=== PATIENT | male | born 1955 | race Caucasian/White ===

== ENCOUNTER → 2016-04-06 | Outpatient (CLI) | payer BC ==
--- NOTE | 2016-04-07 08:05 | XR ---
EXAMINATION TYPE: XR ribs RT w pa chest xray DATE OF EXAM: 04/06/2016 8:51 AM CLINICAL HISTORY: Mid right-sided rib pain for one week. History of positive PPD test and tobacco use . TECHNIQUE: Single frontal view of the chest is obtained. A frontal lobe likely images of the right-si ded ribs are acquired. COMPARISON: None FINDINGS: There is patchy left basilar linear atelectasis. There is 5 mm calcified nodule right lowe r lung suggesting old granulomatous disease. The right lung is clear. No pleural effusion or pneumot horax is seen bilaterally. The cardiac silhouette size is within normal limits with atherosclerotic t horacic aorta. The osseous structures are intact. Dedicated images of the right-sided ribs show minimally displaced acute fracture right posterior late ral eighth ribs. I do suspect adjacent acute nondisplaced right shoulder of right posterior lateral s eventh rib. Overlying soft tissue is unremarkable. IMPRESSION: 1. Patchy left basilar atelectasis. 2. Acute minimally displaced fracture right posterior lateral eighth rib with adjacent acute nondispl aced fracture right posterior lateral seventh rib are felt present. Clinical correlation for recent t rauma advised.
== END | disposition home or self-care (01) ==
LOC: RADXRYALE 08:35
PROVIDERS: ATTEND Physician Assistant Medical
DX: J98.11 Atelectasis (principal); S22.41XA Multiple fractures of ribs, right side, initial encounter for closed fracture; X58.XXXA Exposure to other specified factors, initial encounter

== ENCOUNTER → 2017-04-28 | Outpatient (CLI) | payer BC ==
--- NOTE | 2017-04-29 08:34 | US ---
EXAMINATION TYPE: US thyroid st tissue head/neck DATE OF EXAM: 04/28/2017 COMPARISON: NONE CLINICAL HISTORY: I881 Chronic lympadenitis. Palpable right lateral anterior neck x few months. Bruna ent states having a cold x 3 weeks ago. Area of palpable lump scanned. Oval vascular hypoechoic lesion seen = 2.4 x 2.1 x 1.2 cm. Contralat eral image taken. IMPRESSION: 1. Abnormal hypoechoic mass at the level of the palpable abnormality. This could be a lymph node. Add itional workup with contrast CT neck is recommended.
== END | disposition home or self-care (01) ==
LOC: RADUSWWP 15:27
PROVIDERS: ATTEND Family Medicine
DX: R22.1 Localized swelling, mass and lump, neck (principal)
CPT/HCPCS: 76536

== ENCOUNTER → 2017-05-12 | Outpatient (CLI) | payer BC | END | disposition home or self-care (01) | LOC: RADCTMAIN 09:29 | PROVIDERS: ATTEND Physician Assistant Medical | DX: Z53.9 Procedure and treatment not carried out, unspecified reason (principal) ==

== ENCOUNTER → 2017-05-16 | Outpatient (CLI) | payer BC ==
--- NOTE | 2017-05-16 12:32 | CT ---
EXAMINATION TYPE: CT soft tissue neck w con DATE OF EXAM: 05/16/2017 HISTORY: Rt neck mass and swelling for 3 months. COMPARISON: Neck ultrasound April 28, 2017 CT DLP: 758 mGycm. Automated Exposure Control for Dose Reduction was Utilized. TECHNIQUE: CT scan of the neck is performed with IV Contrast, patient injected with 100 mL of Omnipa que 300, axial images are obtained, coronal and sagittal reformatted images are reviewed. FINDINGS: Airway: At level of palpable abnormality with metallic BB marker on axial image 36 right submandibula r level there is heterogeneous solid mass anterior to SCM muscle measuring 2.0 x 1.4 cm axial image 3 4 believed to correspond to ultrasound abnormality suspected abnormal lymph node. This is just inferi or to right parotid gland. The adjacent oropharynx shows asymmetric heterogeneous fullness at time base with obliteration of the right piriform sinus and poor fat plane separation of the adjacent right submandibular gland. Findings favor oral pharyngeal mass or neoplasm with adjacent malignant adenopathy. Advise ENT referr al and further workup. There is partially calcified 2 cm left thyroid nodule that likely warrants further workup. There is s maller 1.0 cm right thyroid nodule axial image 56 lower pole level. There is background mild to moderate underlying emphysematous change. Parotid/submandibular glands: No gross abnormality seen. Carotid: There is mild mixed plaque in the proximal internal carotid arteries without significant st enosis Osseous Structures: There is mild to moderate multilevel spurring and disc space narrowing in the cer vical spine. Other: No definitive additional greater than 1 cm neck lymph nodes are present. IMPRESSION: 1. Corresponding to ultrasound abnormality there is abnormal solid mass suspected metastatic adenopat hy from primary oropharyngeal neoplasm involving right piriform sinus and tongue base. Advised ENT re ferral for further workup and probable biopsy. 2. Abnormal thyroid nodules, left-sided nodule is part ially calcified and measures 2.0 cm on long axis. Consider ultrasound evaluation and sampling.
== END | disposition home or self-care (01) ==
LOC: RADXRMAIN 07:05
PROVIDERS: ATTEND Family Medicine
DX: R22.1 Localized swelling, mass and lump, neck (principal); E04.2 Nontoxic multinodular goiter
CPT/HCPCS: 70491; Q9967

== ENCOUNTER → 2017-05-29 | Outpatient (CLI) | payer BC, OTHER ==
--- NOTE | 2017-05-30 08:11 | US ---
EXAMINATION TYPE: US thyroid st tissue head/neck DATE OF EXAM: 05/29/2017 COMPARISON: CT neck dated 05/16/2017 CLINICAL HISTORY: E04.1 Thyroid Nodule R22.1 Neck Mass. Thyroid nodule seen on recent CT GLAND SIZE: Right Lobe: 5.3 x 1.8 x 2.5 cm Overall Parenchyma: homogenous Left Lobe: 4.5 x 2.1 x 2.9 cm Overall Parenchyma: heterogeneous Isthmus Thickness: 0.4 cm NODULES RIGHT: # of nodules measured on right: 1 1. 1.4 X 1.0 x 1.3 cm hypoechoic solid nodule at the lower pole with well-defined margins; . This nodule is wider than tall and shows intranodular vascularity. Prior size: no prior LEFT: # of nodules measured on left: 1 1. 2.1 X 1.8 x 1.7 cm isoechoic partially calcified solid nodule at the upper/mid pole with poorly defined margins; . The calcifications do not appear as rim calcifications on the CT. This nodule is w ider than tall and shows intranodular vascularity. Prior size: no prior ISTHMUS: # of nodules measured in the isthmus: 0 Bilateral neck scanned, multiple lymph nodes noted with largest on the right = 2.4 x 1.2 cm. IMPRESSION: 1. Bilateral thyroid nodules, the largest on the left measuring up to 2.1 cm. The features are consid ered suspicious and percutaneous fine-needle aspiration is recommended of at least the left nodule wi th consideration for surveillance of the right thyroid nodule. 2. Right-sided anterior cervical adenopathy with the largest morphologically abnormal and enlarged me asuring 1.2 cm, presumably malignant adenopathy related the patient's known oropharyngeal carcinoma.
== END | disposition home or self-care (01) ==
LOC: RADUSWWP 15:54
PROVIDERS: ATTEND Otolaryngology
DX: C10.9 Malignant neoplasm of oropharynx, unspecified (principal); E04.2 Nontoxic multinodular goiter
CPT/HCPCS: 76536

== ENCOUNTER 2017-06-02 12:10 | Day surgery (SDC) | payer BC, OTHER ==
--- NOTE | 2017-06-02 13:33 | US ---
ULTRASOUND GUIDED FNA THYROID BIOPSY: CLINICAL HISTORY: Request for right and left thyroid nodule measuring 1.4 and 2.1 cm respectively. FINDINGS: The procedure was explained to the patient. The risks, complications, benefits and alternatives were discussed and any questions were answered. Informed consent was obtained. Patient was placed supin e on the ultrasound table and prepped and draped in the usual sterile fashion. Utilizing a 25 gauge needle, five passes were made into the the requested right and subsequently the left thyroid nodule. Patient was stable throughout the procedure. Pathology is pending. All elements of maximal barrier technique were utilized. IMPRESSION: 1. Successful ultrasound guided FNA thyroid biopsy.
[2017-06-02 13:44] VITALS: RESP 16; TEMP 97.1
[2017-06-02 13:54] VITALS: BP 127/76; PULSE 65
== END 2017-06-02 13:35 | disposition home or self-care (01) ==
LOC: RADPROMAIN 12:10
PROVIDERS: ATTEND Otolaryngology
DX: E04.1 Nontoxic single thyroid nodule (principal)
CPT/HCPCS: 10022; 76942; 88173; 88305

== ENCOUNTER → 2017-06-20 | Outpatient (CLI) | payer BC ==
--- NOTE | 2017-06-20 13:56 | XR ---
EXAMINATION TYPE: XR chest 2V DATE OF EXAM: 06/20/2017 COMPARISON: April 06, 2016 HISTORY: Shortness of breath TECHNIQUE: Frontal and lateral views of the chest are obtained. FINDINGS: Scattered senescent parenchymal changes noted. Stable granuloma right midlung zone. No evidence for infiltrate. No evidence for atelectasis. Heart size is stable. Mediastinal structures are stable and grossly unremarkable. No evidence for hilar prominence. Degenerative changes dorsal spine. IMPRESSION: 1. No evidence for acute pulmonary disease.
== END ==
LOC: RADXRYALE 13:41
PROVIDERS: ATTEND Physician Assistant Medical
DX: Z01.818 Encounter for other preprocedural examination (principal); F17.210 Nicotine dependence, cigarettes, uncomplicated
CPT/HCPCS: 71046

== ENCOUNTER 2017-07-06 09:02 | Day surgery (SDC) | payer BC, OTHER ==
[2017-07-05 08:24] VITALS: BMI 24.7
[~2017-07-06 09:02] MED LIST: DEXAMETHASONE SOD PHOSPHATE 10 MG/ML 1 ML VIAL IV ONE; DEXAMETHASONE SOD PHOSPHATE 4 MG/ML 1 ML VIAL IV ONE; FAMOTIDINE 20 MG/2 ML VIAL IV ONE; LACTATED RINGERS 1,000 ML IV SCH; LIDOCAINE 1% 20 ML VIAL (10MG/ML) FOR IV START INTRADERMA PRN; MIDAZOLAM 2 MG/2 ML VIAL IV PRN; MORPHINE SULFATE 4 MG/0.8 ML SYRINGE (INJ) IV PRN; MORPHINE SULFATE 4 MG/ML SYRINGE IV PRN; ONDANSETRON 4 MG/2 ML VIAL IVP ONE; ONDANSETRON ODT 4 MG TAB PO ONE; ONDANSETRON ODT 8 MG TAB.RAPDIS PO ONE; SCOPOLAMINE 1.5MG/72HR PATCH TRANSDERM ONE; ceFAZolin IN SWFI 2 GM/20 ML SYRINGE IVP ONE
[2017-07-06 09:52] VITALS: RESP 16
[2017-07-06] MEDS ORDERED: DEXAMETHASONE SOD PHOS (MDV) 100 MG/10 ML VIAL ONE (11:33)
[2017-07-06] MEDS ORDERED: ROCURONIUM BROMIDE 10 MG/ML 10 ML VIAL IV ONE (11:33)
[2017-07-06] MEDS ORDERED: PROPOFOL 10 MG/ML 20 ML VIAL IV ONE (11:33)
[2017-07-06] MEDS ORDERED: LIDOCAINE 1% INJ 10MG/ML (20 ML MDV) ONE (11:33)
[2017-07-06] MEDS ORDERED: NEOSTIGMINE 1 MG/ML 10 ML VIAL ONE (11:33)
[2017-07-06] MEDS ORDERED: SUCCINYLCHOLINE CHLORIDE 100 MG/5 ML SYR IV ONE (11:33)
[2017-07-06] MEDS ORDERED: MIDAZOLAM 2 MG/2 ML VIAL ONE (11:33)
[2017-07-06] MEDS ORDERED: fentaNYL (PF) 50 MCG/ML 2 ML AMP ONE (11:33)
[2017-07-06] MEDS ORDERED: GLYCOPYRROLATE 0.2 MG/ML 2 ML VIAL ONE (11:33)
[2017-07-06] MEDS ORDERED: LACTATED RINGERS 1,000 ML IV ONE (12:08)
--- NOTE | 2017-07-06 12:26 | P.OP ---
Date of Procedure: 07/06/17 Preoperative Diagnosis: Right neck mass noted, fullness to right BOT, Vallecula and aryepiglotic area Postoperative Diagnosis: same Procedure(s) Performed: Triple endoscopy with biopsy FNA of right neck mass. Anesthesia: GETA Surgeon: Rinku Cook Estimated Blood Loss (ml): 5 Pathology: other (Right neck mass FNA, right BOT, aryepiglottic and vallecula) Description of Procedure: This patient was taken to the operative room and placed in the supine position. A general inhalation anesthetic was administered to the patient by mask and subsequently intubated with an [employer] tube. A tooth guard was placed and a Jako laryngoscope was placed into the patient's mouth with care to avoid any trauma to the lips teeth gums or tongue. The base of tongue, vallecula, epiglottis, postcricoid space, piriform sinus, lateral pharynx and hypopharynx, true and false cords, ventricle, were inspected and great detail. The scope was placed on a Lewy. Fullness noted to the left base of tongue, vallecula and aryepiglottic area. These lesions were biopsied. A bronchoscope was then inserted into the lungs and all 12 segments of the lungs were evaluated with the laparoscope to the extent of visualization. There is no signs of any endobronchial lesions noted. The bronchoscope was then removed and the Jako laryngoscope and fluid was removed. Tooth guard was kept in place. An esophagoscope was then inserted into the patient's mouth and we extended the scope into the right piriform sinus into the esophagus. We passed the rigid esophagoscope into the esophagus to the lower esophageal sphincter and then in retrograde fashion evaluated the esophagus by pulling back to the upper esophageal sphincter. The entire length of the esophagus was evaluated directly. The patient tolerated this procedure well. Right neck mass was noted and FNA performed. Several slides were made. Formalin cytology ordered. Follow-up will be in the office in 1 week.
[2017-07-06 12:30] VITALS: TEMP 97.4
[2017-07-06] MEDS ORDERED: MORPHINE SULFATE 10 MG/ML SYRINGE IVP ONE (13:47)
[2017-07-06 14:07] VITALS: BP 122/77; PULSE 60
== END 2017-07-06 14:27 | disposition home or self-care (01) ==
LOC: OR 09:02
PROVIDERS: ATTEND Otolaryngology
DX: K14.0 Glossitis (principal); R22.1 Localized swelling, mass and lump, neck; E04.1 Nontoxic single thyroid nodule; J39.2 Other diseases of pharynx; E78.2 Mixed hyperlipidemia; E55.9 Vitamin D deficiency, unspecified; Z79.2 Long term (current) use of antibiotics; Z79.899 Other long term (current) drug therapy; F17.210 Nicotine dependence, cigarettes, uncomplicated; Z91.09 Other allergy status, other than to drugs and biological substances
CPT/HCPCS: 88305; 88173; 10021; 31576; 31622; 43191; J2250; J1100 ×2; J2710; J2270; J2001; J3010; J0330; J2704; J0690

== ENCOUNTER 2017-12-05 09:07 | Day surgery (SDC) | payer BC ==
[2017-12-05 09:23] VITALS: BP 134/85; PULSE 86; RESP 20; TEMP 97.7
--- NOTE | 2017-12-05 11:35 | US ---
EXAMINATION TYPE: US biopsy thorax or neck DATE OF EXAM: 12/05/2017 HISTORY: Right neck mass. FINDINGS: Maximal barrier technique was utilized. The skin overlying a suitable path to the patient's right neck mass was localized with ultrasound and the overlying skin prepped and draped. Ultrasound was utilized with sterile technique. Lidocaine was used for local anesthesia. A skin el was made with a scalpel. An 18-gauge needle was advanced under direct ultrasound guidance and core specimen obtained of the mass. Specimen submitted in formalin to Pathology. Following the procedure, hemostasis achieved and the patient is discharged in stable condition without complication. IMPRESSION:STATUS POST ULTRASOUND GUIDED CORE BIOPSY OF right neck MASS, PATHOLOGY IS PENDING. THIS PROCEDURE IS PERFORMED BY THE UNDERSIGNED. JAYNE
--- NOTE | 2017-12-05 11:37 | US ---
EXAMINATION TYPE: US biopsy lymph node DATE OF EXAM: 12/05/2017 COMPARISON: Ultrasound thyroid and neck 11/06/2017 HISTORY: R 59.0, cervical lymphadenopathy Maximal barrier technique was utilized. Ultrasound using sterile technique. The skin overlying the benign-appearing left cervical node was localized with ultrasound and the overlying skin prepped and draped. Lidocaine used for local anesthesia. 2 passes with a 25-gauge needle were made into the lymph node under ultrasound guidance. Aspirate specimen submitted to cytology. Following the procedure hemostasis achieved. No immediate complication IMPRESSION: Status post ultrasound-guided fine-needle aspiration of left cervical lymph node, pathology pending. [facility]
== END 2017-12-05 10:45 | disposition home or self-care (01) ==
LOC: RADPROMAIN 09:07
PROVIDERS: ATTEND Otolaryngology
DX: D11.9 Benign neoplasm of major salivary gland, unspecified (principal)
CPT/HCPCS: 21550; 38505; 76942; 88173; 88305

== ENCOUNTER 2018-01-01 08:12 | Day surgery (SDC) | payer MEDICARE, BC, OTHER ==
[2017-12-27 11:59] VITALS: BMI 21.7
[~2018-01-01 08:12] MED LIST changes: -DEXAMETHASONE SOD PHOSPHATE 10 MG/ML 1 ML VIAL IV ONE; -DEXAMETHASONE SOD PHOSPHATE 4 MG/ML 1 ML VIAL IV ONE; -FAMOTIDINE 20 MG/2 ML VIAL IV ONE; -MIDAZOLAM 2 MG/2 ML VIAL IV PRN; -MORPHINE SULFATE 4 MG/0.8 ML SYRINGE (INJ) IV PRN; -MORPHINE SULFATE 4 MG/ML SYRINGE IV PRN; -ONDANSETRON 4 MG/2 ML VIAL IVP ONE; -ONDANSETRON ODT 4 MG TAB PO ONE; -ONDANSETRON ODT 8 MG TAB.RAPDIS PO ONE; -SCOPOLAMINE 1.5MG/72HR PATCH TRANSDERM ONE; -ceFAZolin IN SWFI 2 GM/20 ML SYRINGE IVP ONE
[2018-01-01 08:41] VITALS: RESP 16; TEMP 98.1
[2018-01-01] MEDS ORDERED: PROPOFOL 10 MG/ML 20 ML VIAL IV ONE (10:07)
--- NOTE | 2018-01-01 10:42 | P.PCN ---
Date of Procedure: 01/01/18 Procedure(s) Performed: Procedure: Total colonoscopy and polypectomy. Preoperative diagnosis: Screening for neoplasia. Postoperative diagnosis: Small distal sigmoid polyp snared but no large polyps or cancer. Sigmoid diverticulosis with no evidence of acute diverticulitis or strictures. Preparation: HalfLytely prep. Sedation: Was provided by anesthesia. Brief clinical history: The patient is a 62-year-old male who is scheduled for this evaluation for screening for neoplasia, age being his risk factor. He has no overt bleeding or any change in bowel habits or any upper GI complaints or anemia. He had 2 prior colonoscopies the last was around 4 or 5 years ago. He had polyps removed in the past. Procedure: With the patient on his left lateral decubitus position and after informed consent and adequate sedation, the perianal area was inspected and it did not show any fissures or fistulas. There were no masses felt on digital rectal examination. The Olympus CFH 190L video colonoscope was then inserted in the rectum in the usual fashion and advanced to the cecum. There was a small polyp in the distal sigmoid which was snared and retrieved by suction, otherwise, exam to the cecum showed healthy mucosa. Several diverticular orifices were seen scattered in the sigmoid, but there was no evidence of acute diverticulitis or strictures. I retroflexed the endoscope in the rectum before the endoscope was withdrawn. The patient tolerated the procedure well. Plan: The patient was reassured. Discussed dietary measures. For screening for colon neoplasia, I am recommending repeat exam in 5 years. He will follow up with you as planned.
[2018-01-01 10:55] VITALS: BP 114/75; PULSE 67
== END 2018-01-01 11:31 | disposition home or self-care (01) ==
LOC: ORWHC2ENDO 08:12
DX: Z12.11 Encounter for screening for malignant neoplasm of colon (principal); D12.5 Benign neoplasm of sigmoid colon; K57.30 Diverticulosis of large intestine without perforation or abscess without bleeding; Z86.010 Personal history of colon polyps; J45.909 Unspecified asthma, uncomplicated; I10 Essential (primary) hypertension; E78.5 Hyperlipidemia, unspecified; M19.90 Unspecified osteoarthritis, unspecified site; G47.33 Obstructive sleep apnea (adult) (pediatric); F17.210 Nicotine dependence, cigarettes, uncomplicated; Z91.041 Radiographic dye allergy status
CPT/HCPCS: 88305; 45385; J2704

== ENCOUNTER → 2019-01-10 | Outpatient (CLI) | payer MEDICARE, BC, OTHER ==
--- NOTE | 2019-01-14 16:38 | US ---
EXAMINATION TYPE: US duplex aorta DATE OF EXAM: 01/10/2019 COMPARISON: NONE CLINICAL HISTORY: 63-year-old male Z13.6 AAA Screening, F17.210 nicotine dependence. TECHNIQUE: Multiple sonographic images of the abdominal aorta are obtained. FINDINGS: EXAM MEASUREMENTS: Abdominal Aorta: Proximal: 2.4cm Mid: 2.2cm Distal: 1.8cm Bifurcation: Rt: 1.4cm Lt. 1.4cm , within normal limits. Mild atherosclerotic changes. IMPRESSION: Mild atherosclerotic changes. No sonographic evidence for abdominal aortic ectasia or aneurysm.
== END | disposition home or self-care (01) ==
LOC: RADUSWWP 09:17
PROVIDERS: ATTEND Physician Assistant Medical
DX: Z13.6 Encounter for screening for cardiovascular disorders (principal); I70.0 Atherosclerosis of aorta; F17.210 Nicotine dependence, cigarettes, uncomplicated
CPT/HCPCS: 93979

== ENCOUNTER → 2019-04-22 | Outpatient (CLI) | payer MEDICARE, BC, OTHER ==
--- NOTE | 2019-04-22 10:30 | XR ---
EXAMINATION TYPE: XR ankle complete LT DATE OF EXAM: 04/22/2019 CLINICAL HISTORY: Left ankle pain after fall 3 days ago. Pain is located over the lateral malleolus. TECHNIQUE: Frontal, lateral and oblique images of the left ankle are obtained. COMPARISON: None. FINDINGS: There is an obliquely oriented nondisplaced fracture of the distal fibula with fracture francy e extending to the distal syndesmosis. Fracture is not comminuted and closed. No radiopaque foreign b jose is seen. Incidentally noted os trigonum. The ankle mortise appears aligned. The overlying soft t issue appears unremarkable. IMPRESSION: Acute nondisplaced, noncomminuted obliquely oriented distal left fibular fracture. A Yellow level critical message alert has been initiated for Virgil Busby DO via the [employer] Critical Results System on 04/22/2019 10:27 AM. This message alert has been sent to Virgil espitia DO via the preferences provided by the clinician for the receipt of Radiology Critical Findings . Message ID [id number].
== END | disposition home or self-care (01) ==
LOC: RADXRYALE 08:46
PROVIDERS: ATTEND Family Medicine
DX: S82.435A Nondisplaced oblique fracture of shaft of left fibula, initial encounter for closed fracture (principal)

== ENCOUNTER 2020-04-08 07:58 | Day surgery (SDC) | payer MEDICARE, BC, OTHER ==
[2020-04-06 16:26] VITALS: BMI 28.5
[~2020-04-08 07:58] MED LIST changes: +ATROPINE OPHTH SOLN 1% 5ML BTL BOTH EYES PRN; -LACTATED RINGERS 1,000 ML IV SCH; -LIDOCAINE 1% 20 ML VIAL (10MG/ML) FOR IV START INTRADERMA PRN; +MOXIFLOXACIN HCL 0.5% DROPS 3 ML BTL OP PRN; +TETRACAINE 0.5% OPHTH (PF) DROPS 4 ML BTL OP PRN; +TIMOLOL 0.5% OPHTH DROPS 5 ML BTL OP PRN
[2020-04-08] MEDS: PHENYLEPHRINE 2.5% OPHTH DRP 2ML OP PRN ×3 (08:51→09:03)
[2020-04-08] MEDS: CYCLOPENTOLATE 1% OPHTH SOLN 2 ML BTL OP PRN ×3 (08:54→09:06)
[2020-04-08 08:58] VITALS: RESP 16; TEMP 97.6
[2020-04-08] MEDS: LACTATED RINGERS 1,000 ML IV SCH ×2 (09:11→09:47)
[2020-04-08] MEDS ORDERED: MIDAZOLAM 2 MG/2 ML VIAL ONE (09:43)
[2020-04-08] MEDS ORDERED: fentaNYL (PF) 50 MCG/ML 2 ML AMP ONE (09:43)
[2020-04-08] MEDS ORDERED: EPINEPHrine (PF) 0.3 ML in BALANCED SALT IRRIG SOLN COMB2 500 ML IRRIGATION ONE (09:55)
[2020-04-08] MEDS ORDERED: LIDOCAINE 1% (PF) 10MG/ML VIAL MISCELLANE ONE (09:56)
[2020-04-08] MEDS ORDERED: BALANCED SALT IRRIG SOLN COMB2 15 ML IRRIG.SOLN IRRIGATION ONE (09:56)
[2020-04-08] MEDS ORDERED: DUOVISC KIT (GREEN BOX) INTRAOCULA ONE (09:56)
--- NOTE | 2020-04-08 10:18 | P.OP ---
Date of Procedure: 04/08/20 Preoperative Diagnosis: NS & CS Postoperative Diagnosis: same Procedure(s) Performed: PIOL, OD Implants: [id number] 13.50 Anesthesia: MAC Surgeon: Everett Patel Pathology: none sent Condition: stable Disposition: same day Indications for Procedure: blurry vision Operative Findings: no complications
[2020-04-08 10:37] VITALS: BP 137/85; PULSE 59
--- NOTE | 2020-04-08 21:00 | OP ---
OPERATIVE REPORT DATE OF SURGERY: 04/08/2020 PROCEDURE: Phacoemulsification of cataract and intraocular lens implant of the right eye. PREOPERATIVE DIAGNOSIS: Nuclear sclerosis, cortical sclerosis. POSTOPERATIVE DIAGNOSIS: Nuclear sclerosis, cortical sclerosis. ESTIMATED BLOOD LOSS: Zero. SPECIMEN TAKEN: None. NARRATIVE: After obtaining the appropriate consent, the patient was brought to the operating room, where the patient was placed under cardiac monitoring and prepped and draped in the usual sterile manner. At the 11 o'clock position a 15-degree super sharp blade was used to create a paracentesis followed by instillation of 1% Xylocaine MPF 50:50 mix with BSS into the anterior chamber. This was followed by viscoelastic DuoVisc to stabilize the anterior chamber. At the 9 o'clock position a self-sealing corneal flap incision was created using 2.8 mm felipe keratome. A cystotome was used to initiate a continuous tear capsulorrhexis which was completed with the Utrata forceps. A Binkhorst cannula was used to hydrodissect the lens nucleus followed by hydrodelineation. Phacoemulsification of the lens was performed utilizing phaco chop in 18.66 seconds at 18% power. The remaining cortical material was removed using the irrigation and aspiration mode followed by additional 1% Xylocaine MPF into the anterior chamber followed by viscoelastic to stabilize the capsular bag. A Bausch and Lomb MX 60E 13.5 diopters posterior chamber lens was placed into the capsular bag without difficulty. The remaining viscoelastic material was removed from the anterior chamber with the irrigation/aspiration. Balanced salt solution was used to normalize the intraocular pressure. The incision was checked for watertight integrity. The patient then received two drops of 0.5% Timolol followed by two drops Vigamox and was lightly patched and shielded in the usual manner. There were no complications from the procedure. The patient tolerated the procedure well and was returned to Recovery in good condition. MMODL / IJN: [id number] /
== END 2020-04-08 10:50 | disposition home or self-care (01) ==
LOC: OR 07:58
PROVIDERS: ATTEND Ophthalmology
DX: H25.813 Combined forms of age-related cataract, bilateral (principal); H35.413 Lattice degeneration of retina, bilateral; I10 Essential (primary) hypertension; F17.200 Nicotine dependence, unspecified, uncomplicated; Z91.041 Radiographic dye allergy status; Z97.3 Presence of spectacles and contact lenses
CPT/HCPCS: 66984; C1780; J2250; J0171; J3010; J2001

== ENCOUNTER 2020-04-22 10:19 | Day surgery (SDC) | payer MEDICARE, BC, OTHER ==
[2020-04-17 11:58] VITALS: BMI 21.7
[~2020-04-22 10:19] MED LIST changes: -ATROPINE OPHTH SOLN 1% 5ML BTL BOTH EYES PRN; +CYCLOPENTOLATE 1% OPHTH SOLN 2 ML BTL OP PRN; +LACTATED RINGERS 1,000 ML IV SCH; +LIDOCAINE 1% (10MG/ML) FOR IV START INTRADERMA PRN; -MOXIFLOXACIN HCL 0.5% DROPS 3 ML BTL OP PRN; +PHENYLEPHRINE 2.5% OPHTH DRP 2ML OP PRN; -TIMOLOL 0.5% OPHTH DROPS 5 ML BTL OP PRN
[2020-04-22 11:31] VITALS: TEMP 98.1
[2020-04-22] MEDS ORDERED: fentaNYL (PF) 50 MCG/ML 2 ML AMP ONE (12:01)
[2020-04-22] MEDS ORDERED: MIDAZOLAM 2 MG/2 ML VIAL ONE (12:01)
[2020-04-22] MEDS ORDERED: BALANCED SALT IRRIG SOLN COMB2 15 ML IRRIG.SOLN INTRAOCULA ONE ×2 (12:16→12:18)
[2020-04-22] MEDS ORDERED: DUOVISC KIT (GREEN BOX) INTRAOCULA ONE ×2 (12:16→12:18)
[2020-04-22] MEDS ORDERED: LIDOCAINE 1% (PF) 10MG/ML VIAL MISCELLANE ONE ×2 (12:16→12:18)
[2020-04-22] MEDS: MOXIFLOXACIN HCL 0.5% DROPS 3 ML BTL OP PRN ×2 (12:16→12:26)
[2020-04-22] MEDS: TIMOLOL 0.5% OPHTH DROPS 5 ML BTL OP PRN ×2 (12:17→12:26)
[2020-04-22] MEDS ORDERED: EPINEPHrine (PF) 0.3 ML in BALANCED SALT IRRIG SOLN COMB2 500 ML IRRIGATION ONE ×4 (12:17)
--- NOTE | 2020-04-22 12:34 | P.OP ---
Date of Procedure: 04/22/20 Preoperative Diagnosis: NS & CS & PSC Postoperative Diagnosis: same Procedure(s) Performed: PIOL, OS Implants: [id number] 15.00 Anesthesia: MAC Surgeon: Everett Patel Pathology: none sent Condition: stable Disposition: same day Indications for Procedure: blurry vision Operative Findings: no complications
[2020-04-22 13:07] VITALS: BP 135/90; PULSE 57; RESP 16
--- NOTE | 2020-04-22 20:12 | OP ---
OPERATIVE REPORT DATE OF SURGERY: 04/22/2020. PROCEDURE: Phacoemulsification of cataract and intraocular lens implant of the left eye. PREOPERATIVE DIAGNOSIS: Nuclear sclerosis, cortical sclerosis. POSTOPERATIVE DIAGNOSIS: ESTIMATED BLOOD LOSS: Zero. SPECIMEN TAKEN: None. NARRATIVE: After obtaining the appropriate consent, the patient was brought to the operating room, where the patient was placed under cardiac monitoring and prepped and draped in the usual sterile manner. At the 5 o'clock position a 15-degree super sharp blade was used to create a paracentesis followed by instillation of 1% Xylocaine MPF 50:50 mix with BSS into the anterior chamber. This was followed by Duovisc to stabilize the anterior chamber. At the 3 o'clock position a self-sealing corneal flap incision was created using 2.8 mm felipe keratome. A cystotome was used to initiate a continuous tear capsulorrhexis which was completed with the Utrata forceps. A Binkhorst cannula was used to hydrodissect the lens nucleus followed by hydrodelineation. Phacoemulsification of the lens was performed utilizing phacochop in 21.04 seconds at 15% power. The remaining cortical material was removed using the irrigation aspiration mode followed by additional 1% Xylocaine MPF into the anterior chamber followed by viscoelastic Duovisc to stabilize the capsular bag. A Bausch and Lomb MX 60E 15 diopters posterior chamber lens was placed into the capsular bag without difficulty. The remaining viscoelastic material was removed from the anterior chamber with the irrigation/aspiration. Balanced salt solution was used to normalize the intraocular pressure. The incision was checked for watertight integrity. The patient then received two drops of 0.5% timolol followed by two drops Vigamox, was lightly patched and shielded in the usual manner. There were no complications from the procedure. The patient tolerated the procedure well and was returned to recovery in good condition. MMODL / IJN: [id number] /
== END 2020-04-22 13:13 | disposition home or self-care (01) ==
LOC: OR 10:19
PROVIDERS: ATTEND Ophthalmology
DX: H25.812 Combined forms of age-related cataract, left eye (principal); H35.413 Lattice degeneration of retina, bilateral; I10 Essential (primary) hypertension; E78.5 Hyperlipidemia, unspecified; E07.9 Disorder of thyroid, unspecified; Z96.1 Presence of intraocular lens; Z91.048 Other nonmedicinal substance allergy status; Z97.3 Presence of spectacles and contact lenses; Z98.41 Cataract extraction status, right eye
CPT/HCPCS: 66984; C1780; J2250; J0171; J3010; J2001

== ENCOUNTER → 2020-06-30 | Outpatient (CLI) | payer MEDICARE, BC, OTHER ==
--- NOTE | 2020-06-30 15:21 | NM ---
EXAMINATION TYPE: NM bone scan whole body DATE OF EXAM: 06/30/2020 COMPARISON: NONE HISTORY: Spondylosis deformity of the first lumbar vertebral body Delayed whole-body scanning was performed following the injection of 23 mCi Tc 99m MDP. Images were acquired 3 hours post injection. FINDINGS: There is a focal area of increased radiotracer within the posterior left 10th rib region. This could be shine through from a more anterior sixth left rib area of uptake. Some posterior left costovertebr al junction uptake may be present T10 and T11. Right anterior lateral uptake in the rib 5 and a be pr esent on the whole-body images. Suspicious uptake within the region of L1 is not identified. Uptake to the lumbar spine appears withi n normal limits. Some mild degenerative type uptake is in the medial left knee. IMPRESSION: 1. Focal areas of increased uptake within bilateral posterior lateral ribs possibly within right ante rior lateral mid rib can be posttraumatic. 2. No suspicious uptake in the region of the lumbar vertebral bodies to suggest acute fracture
== END | disposition home or self-care (01) ==
LOC: RADNMMAIN 11:09
PROVIDERS: ATTEND Physical Medicine & Rehabilitation
DX: S22.080A Wedge compression fracture of T11-T12 vertebra, initial encounter for closed fracture (principal)
CPT/HCPCS: 78306; A9503

== ENCOUNTER → 2020-11-16 | Outpatient (CLI) | payer MEDICARE, BC, OTHER ==
--- NOTE | 2020-11-16 11:29 | XR ---
EXAMINATION TYPE: XR ribs LT w pa chest xray DATE OF EXAM: 11/16/2020 COMPARISON: NONE HISTORY: Pain TECHNIQUE: Single view of the chest 4 views of the ribs are submitted. FINDINGS: The lungs are clear. No Evidence for pneumothorax. No evidence for focal contusion. Medi astinal structures are midline. Evaluation of the ribs demonstrates deformity of left rib #7. IMPRESSION: Fracture of left rib #7. Mild pleural thickening. No pneumothorax.
== END | disposition home or self-care (01) ==
LOC: RADXRYALE 10:53
PROVIDERS: ATTEND Physician Assistant Medical
DX: S22.32XA Fracture of one rib, left side, initial encounter for closed fracture (principal); J92.9 Pleural plaque without asbestos

== ENCOUNTER → 2022-01-17 | Outpatient (CLI) | payer MEDICARE, BC, OTHER ==
--- NOTE | 2022-01-17 10:25 | XR ---
EXAMINATION TYPE: XR chest 2V DATE OF EXAM: 01/17/2022 COMPARISON: NONE HISTORY: Shortness of breath TECHNIQUE: Frontal and lateral views of the chest are obtained. FINDINGS: Scattered senescent parenchymal changes noted. Hyperinflation compatible with COPD. No evidence for infiltrate. No evidence for atelectasis. Heart size is stable. Mediastinal structures are stable and grossly unremarkable. No evidence for hilar prominence. Degenerative changes dorsal spine. IMPRESSION: 1. No evidence for acute pulmonary disease.
== END | disposition home or self-care (01) ==
LOC: RADXRYALE 10:01
PROVIDERS: ATTEND Physician Assistant Medical
DX: R05.9 Cough, unspecified (principal); F17.210 Nicotine dependence, cigarettes, uncomplicated
CPT/HCPCS: 71046

== ENCOUNTER → 2022-06-07 | Outpatient (CLI) | payer MEDICARE, BC, OTHER ==
--- NOTE | 2022-06-07 15:24 | CTL ---
EXAMINATION TYPE: CT Low Dose Lung DATE OF EXAM ORDERED: 06/07/2022 COMPARISON: None HISTORY: . Low Dose CT Lung Screening CT DLP: 100.[address] CTDI: 2.7 mGy IV CONTRAST USED: None. SCREENING VISIT: First visit COMPARISON: None. TECHNIQUE: Low dose computed tomography scan was performed through the chest at 1 millimeter thick se ctions and reconstructed images in the coronal plane at [address] DIAGNOSTIC QUALITY: Satisfactory FINDINGS: LUNG NODULES: Not presentLeft lung: no nodules identified.Right lung: no nodules identified. Calcifi ed granuloma right middle lobe LUNGS: COPD: Severity: Mild Fibrosis: Severity:None Lymph nodes: None Other findings: None RIGHT PLEURAL SPACE: Effusion: None Calcification: None Thickening: None Pneumothorax: None LEFT PLEURAL SPACE: Effusion: None Calcification: None Thickening: None Pneumothorax: None HEART: Heart Size: Mildly enlarged Coronary calcification: Mild Pericardial effusion: None OTHER FINDINGS: Upper abdomen: No significant abnormality Bony thorax: Degenerative changes Supraclavicular region: No significant abnormalityOther: No significant abnormalityI IMPRESSION: Evidence of remote granulomatous disease FOLLOW UP CT CHEST RECOMMENDATION: Follow-up screening in one year CT LUNG RAD: LUNG RAD CATEGORY 2 benign appearance
== END | disposition home or self-care (01) ==
LOC: RADCTMAIN 14:08
PROVIDERS: ATTEND Family Medicine
DX: Z12.2 Encounter for screening for malignant neoplasm of respiratory organs (principal); F17.210 Nicotine dependence, cigarettes, uncomplicated
CPT/HCPCS: 71271

== ENCOUNTER → 2024-08-23 | Outpatient (CLI) | payer MEDICARE, BC, OTHER | END | disposition home or self-care (01) | LOC: RADMAMWWP 12:23 | PROVIDERS: ATTEND Family Medicine | DX: Z53.9 Procedure and treatment not carried out, unspecified reason (principal) ==